=== PATIENT | female | born 1970 | race Hispanic/Latino ===

== ENCOUNTER → 2022-10-04 15:04 | Outpatient (CLI) | payer OTHER, SELFPAY ==
--- NOTE | 2022-10-04 | DI.US.S_ITS ---
PROCEDURE: US ABDOMEN LIMITED INDICATIONS: CONCERNS TECHNIQUE: Real-time focused scanning was performed of the abdomen, with image documentation. COMPARISON: None. FINDINGS: Focused ultrasound examination of anterior abdominal wall superior to the umbilicus shows large anterior abdominal wall defect measures up to 4.2 cm in with. Herniation sac measures up to 9.4 x 4.8 x 11.1 cm in size containing fat. No definite peristalsing bowel loops are noted within the herniation sac. IMPRESSION: Large ventral hernia as described above. CT of abdomen can be done for better evaluation if indicated. Dictated by: Nikunj Draper M.D. on 10/04/2022 at 16:35 Approved by: Nikunj Draper M.D. on 10/04/2022 at 16:36
== END ==
PROVIDERS: PCP Student in an Organized Health Care Education/Training Program; Referring Provider Student in an Organized Health Care Education/Training Program; Visit Provider Student in an Organized Health Care Education/Training Program
DX: K43.9 Ventral hernia without obstruction or gangrene (principal); R19.05 Periumbilic swelling, mass or lump
CPT/HCPCS: 76705

== ENCOUNTER → 2023-09-12 06:57 | Outpatient (CLI) | payer OTHER, SELFPAY ==
--- NOTE | 2023-09-12 06:58 | DI.US.S_ITS ---
PROCEDURE: US THYROID INDICATIONS: MULTINODULAR THYROID TECHNIQUE: Real-time scanning was performed of the thyroid gland, with image documentation. COMPARISON: None. FINDINGS: Thyroid: Right lobe measures 5.9 x 2.1 x 2.8 cm. Left lobe measures 5.9 x 1.8 x 2.1 cm. Isthmus is not measured. Echotexture is markedly heterogeneous. Nodule number: 1 Location: Right upper pole Size: 2.0 x 1.2 x 2.0 cm. Composition: Solid Echogenicity: Isoechoic Shape: wider than tall. Margins: Ill-defined Echogenic foci: Punctate Total points: 6 ACR TI-RADS category: Moderately suspicious Nodule number: 2 Location: Right lower pole Size: 2.0 x 2.2 x 2.1 cm. Composition: Solid Echogenicity: Isoechoic Shape: wider than tall. Margins: Ill-defined Echogenic foci: Punctate Total points: 6 ACR TI-RADS category: Moderately suspicious Nodule number: 3 Location: Right middle pole Size: 2.1 x 1.7 x 2.0 cm. Composition: Solid Echogenicity: Isoechoic Shape: wider than tall. Margins: Ill-defined Echogenic foci: Punctate Total points: 6 ACR TI-RADS category: Moderately suspicious Nodule number: 4 Location: Left lower pole Size: 1.9 x 1.3 x 1.4 cm. Composition: Solid Echogenicity: Isoechoic Shape: wider than tall. Margins: Ill-defined Echogenic foci: Punctate Total points: 6 ACR TI-RADS category: Moderately suspicious IMPRESSION: There are 4 separate nodules which are all in the moderately suspicious category and are all of sufficient size to warrant FNA for tissue diagnosis. Apparently 1 of these nodules has been sampled, and, according to the patient, carries a benign diagnosis. Please refer to the definitions and recommendations below. Recommend obtaining the previous study and determining which nodule was sampled and arranging for potential FNA under ultrasound guidance of the other 3 nodules. Typically, only 2 nodules with the sampled in a single setting. ACR TI-RADS definitions and recommendations: TI-RADS 1 (benign): 0 points. FNA not needed. TI-RADS 2 (not suspicious): 2 points. FNA not needed. TI-RADS 3 (mildly suspicious): 3 points. * FNA if 2.5 cm or larger, follow up if 1.5 cm or larger (at 1, 3, and 5 years). TI-RADS 4 (moderately suspicious): 4-6 points. * FNA if 1.5 cm or larger, follow up if 1 cm or larger (at 1, 2, 3, and 5 years). TI-RADS 5 (highly suspicious): 7 points or more. * FNA if 1 cm or larger, follow up if 0.5 cm or larger (every year for 5 years). Dictated by: Arnie Mendiola M.D. on 09/27/2023 at 20:45 Approved by: Arnie Mendiola M.D. on 09/27/2023 at 20:50
== END ==
PROVIDERS: PCP Student in an Organized Health Care Education/Training Program; Referring Provider Student in an Organized Health Care Education/Training Program; Visit Provider Student in an Organized Health Care Education/Training Program
DX: E04.2 Nontoxic multinodular goiter (principal)
CPT/HCPCS: 76536